=== PATIENT | female | born 1975 ===

== ENCOUNTER 2021-02-01 11:02 | Emergency (ER) | payer MEDICAID, SELFPAY ==
[2021-02-01 12:00] VITALS: BP 111/80
--- NOTE | 2021-02-01 12:15 | Emergency Department Report ---
- General Chief Complaint: Dyspnea/Respdistress Stated Complaint: COVID+ DIFF BREATHING Time Seen by Provider: 02/01/21 12:02 Source: patient Mode of arrival: Ambulatory Limitations: No Limitations - History of Present Illness Initial Comments: 45-year-old female who reports a past medical history of bronchitis and seasonal allergies presents to the ER today complaining of upper back pain rating into the chest prior to being diagnosed with Covid 19 recently. The patient states that she was diagnosed with COVID-19 2 days ago. She states that she has been having pain in her upper back since she has been sick, but she has noticed that it been getting worse and radiating into her anterior chest. She reports increased pain when she coughs and sometimes when she takes a deep breath. She states that she has a nonproductive cough but feels like she had chest congestion. She denies any wheezing. She reports shortness of breath, rhinorrhea, nasal congestion, generalized body aches, nausea and she states that last time she had a temperature was yesterday which was 100.1. She denies any calf pain or lower extremity swelling. She states that she has been taking [id number] medications to help her symptoms. She states that she used to smoke but she stopped 3 years ago. She denies any cardiac risk factors not that she has any risk factors for PE or DVT. MD Complaint: cough, other (Upper back pain into the chest) -: Gradual - Related Data Previous Rx's Medication Instructions Recorded Last Taken Type Albuterol Mdi (or & Nicu Only) 2 puff IH QID PRN #8.5 gram 02/01/21 Unknown Rx [ProAir HFA Inhaler] Ibuprofen [Motrin] 600 mg PO Q8H PRN #30 tablet 02/01/21 Unknown Rx dexAMETHasone [Decadron] 4 mg PO ONCE #5 tablet 02/01/21 Unknown Rx methOCARBAMOL [Robaxin TAB] 500 mg PO Q8H PRN #30 tablet 02/01/21 Unknown Rx Allergies Allergy/AdvReac Type Severity Reaction Status Date / Time Penicillins AdvReac Unknown Verified 02/01/21 11:56 ED Review of Systems ROS: Stated complaint: COVID+ DIFF BREATHING Other details as noted in HPI Comment: All other systems reviewed and negative Constitutional: fever. denies: chills ENT: congestion, other (Rhinorrhea). denies: ear pain, throat pain Respiratory: cough, shortness of breath. denies: wheezing Cardiovascular: chest pain Endocrine: no symptoms reported Gastrointestinal: denies: abdominal pain, nausea, vomiting, diarrhea, constipation, hematemesis, melena, hematochezia Genitourinary: denies: urgency, dysuria, frequency, hematuria, discharge, abnormal menses, dyspareunia Musculoskeletal: back pain. denies: joint swelling, arthralgia, myalgia Neurological: denies: headache, weakness, numbness, paresthesias, confusion, abnormal gait Psychiatric: denies: anxiety, depression, auditory hallucinations, visual hallucinations, homicidal thoughts, suicidal thoughts Hematological/Lymphatic: denies: easy bleeding, easy bruising ED Past Medical Hx - Past Medical History Previous Medical History?: No - Surgical History Past Surgical History?: Yes Hx Appendectomy: Yes - Medications Home Medications: Home Medications Medication Instructions Recorded Confirmed Last Taken Type Albuterol Mdi (or & Nicu Only) 2 puff IH QID PRN #8.5 gram 02/01/21 Unknown Rx [ProAir HFA Inhaler] Ibuprofen [Motrin] 600 mg PO Q8H PRN #30 tablet 02/01/21 Unknown Rx dexAMETHasone [Decadron] 4 mg PO ONCE #5 tablet 02/01/21 Unknown Rx methOCARBAMOL [Robaxin TAB] 500 mg PO Q8H PRN #30 tablet 02/01/21 Unknown Rx ED Physical Exam - General Limitations: No Limitations ED Course Vital Signs 02/01/21 11:59 Temperature 98.0 F Pulse Rate 52 L Respiratory 20 Rate Blood Pressure 111/80 O2 Sat by Pulse 100 Oximetry ED Medical Decision Making - EKG Data EKG shows normal: sinus rhythm Rate: bradycardia (52) - EKG Data Interpretation: normal EKG - Radiology Data Radiology results: report reviewed interpreted by me: Patient: PETER WILKINS MR#: [id number] 31 : 1975 Acct:[id number] Age/Sex: 45 / F ADM Date: 02/01/21 Loc: ED Attending Dr: Ordering Physician: MICHELLE PATINO Date of Service: 02/01/21 Procedure(s): XR chest routine 2V Accession Number(s): [id number] cc: MICHELLE PATINO Fluoro Time In Minutes: CHEST 2 VIEWS INDICATION / CLINICAL INFORMATION: Upper back pain/chest pain/positive Covid. COMPARISON: None available. FINDINGS: SUPPORT DEVICES: None. HEART / MEDIASTINUM: No significant abnormality. LUNGS / PLEURA: No significant pulmonary or pleural abnormality. No pneumothorax. ADDITIONAL FINDINGS: No significant additional findings. IMPRESSION: 1. No acute findings. Signer Name: Neo Cooper MD Signed: 02/01/2021 12:52 PM Workstation Name: [id number] Transcribed By: CHARLOTTE Dictated By: Neo Cooper MD Electronically Authenticated By: Neo Cooper MD Signed Date/Time: 02/01/211251 DD/ 51 TD/TT: - Medical Decision Making Chest x-ray shows nothing acute. Patient currently is well-appearing, nontoxic and not in any acute pain or respiratory distress. She appears well-hydrated. She is neurologically intact with a normal gait in the ER. Vital signs are reviewed and stable. She was also ambulated in the ER by me and maintained an oxygen saturation on room air of 98%. She had no complaints of chest pain or shortness of breath. I suspect that her pain is likely musculoskeletal at this time. Her history, exam and current condition does not suggest meningitis, severe pneumonia, acute respiratory distress syndrome, sepsis, or any other serious bacterial and/or viral infection requiring any further testing, treatment, consultation or admission at this time. Discussed x-ray results with patient. Discussed suspected diagnosis and treatment plan with patient. Patient will continue to quarantine per her job protocol. Patient expressed understanding of instructions and agree with plan. Patient stable at time of discharge. Critical care attestation.: If time is entered above; I have spent that time in minutes in the direct care of this critically ill patient, excluding procedure time. ED Disposition Clinical Impression: Bronchitis due to COVID-19 virus, COVID-19 virus infection, Musculoskeletal pain Disposition: TO HOME OR SELFCARE Is pt being admited?: No Does the pt Need Aspirin: No Condition: Stable Instructions: COVID-19, Musculoskeletal Pain, Prevent the Spread of COVID-19 if You Are Sick - CDC, Chronic Bronchitis (ED) Additional Instructions: I recommend that you take the ibuprofen, Decadron and the muscle relaxer as prescribed. Recommend that you take Mucinex DM from [id number] to help with your cough. Recommend that you use the albuterol inhaler as prescribed to help with any wheezing or shortness of breath. Continue to quarantine as per your job protocol. I recommend that you rest, drink lots of fluids, take a multivitamin. Follow-up closely with your primary care doctor. Return to the ER if your symptoms changes or worsens in any way. Prescriptions: dexAMETHasone [Decadron] 4 mg PO ONCE #5 tablet Ibuprofen [Motrin] 600 mg PO Q8H PRN #30 tablet PRN Reason: Pain Albuterol Mdi (or & Nicu Only) [ProAir HFA Inhaler] 2 puff IH QID PRN #8.5 gram PRN Reason: Shortness Of Breath methOCARBAMOL [Robaxin TAB] 500 mg PO Q8H PRN #30 tablet PRN Reason: Muscle Spasm Referrals: [facility] [Provider Group] - 3-5 Days Time of Disposition: 13:18
--- NOTE | 2021-02-01 12:57 | XRay Report ---
CHEST 2 VIEWS INDICATION / CLINICAL INFORMATION: Upper back pain/chest pain/positive Covid. COMPARISON: None available. FINDINGS: SUPPORT DEVICES: None. HEART / MEDIASTINUM: No significant abnormality. LUNGS / PLEURA: No significant pulmonary or pleural abnormality. No pneumothorax. ADDITIONAL FINDINGS: No significant additional findings. IMPRESSION: 1. No acute findings. Signer Name: Neo Cooper MD Signed: 02/01/2021 12:52 PM Workstation Name: [id number]
--- NOTE | 2021-02-02 18:07 | Electrocardiograph Report ---
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
== END 2021-02-01 13:34 | disposition home or self-care (01) ==
LOC: ED 11:02
DX: U07.1 COVID-19 (principal); J40 Bronchitis, not specified as acute or chronic; M79.18 Myalgia, other site; Z88.0 Allergy status to penicillin; Z98.890 Other specified postprocedural states
CPT/HCPCS: 71046; 93005; 99283